=== PATIENT | female | born 1980 | race African-American/Black ===

== ENCOUNTER 2023-06-13 15:05 | Outpatient (CLI) | payer OTHER | END 2023-06-13 15:06 | disposition home or self-care (01) | LOC: CSHMAMMO 15:05 | PROVIDERS: ATTEND Nurse Practitioner Family | DX: Z12.31 Encounter for screening mammogram for malignant neoplasm of breast (principal); N64.89 Other specified disorders of breast; Z80.3 Family history of malignant neoplasm of breast | CPT/HCPCS: 77067 ==

== ENCOUNTER 2023-07-02 14:13 | Outpatient (CLI) | payer OTHER, MEDICAID | END 2023-07-02 14:14 | disposition home or self-care (01) | LOC: CSHMAMMO 14:13 | PROVIDERS: ATTEND Nurse Practitioner Family | DX: N64.89 Other specified disorders of breast (principal) | CPT/HCPCS: G0279 ==

== ENCOUNTER 2024-01-24 10:00 | Outpatient (CLI) | payer OTHER | END 2024-01-24 10:01 | disposition home or self-care (01) | LOC: CSHULT 10:00 | PROVIDERS: ATTEND Nurse Practitioner Family | DX: R10.84 Generalized abdominal pain (principal) | CPT/HCPCS: 76700 ==